=== PATIENT | male | born 2000 | race Two or more races ===

== ENCOUNTER 2025-08-17 14:44 | Inpatient (IN) | payer SELFPAY ==
[~2025-08-17] VITALS: Ht 180.3 cm; Wt 84.1 kg
[~2025-08-17 14:44] MED LIST: PENI500T2 PO
[2025-08-17] MEDS: normal saline 1000ml 1,000 ML IV ONE (15:33)
[2025-08-17] MEDS: ketorolac trometh 15mg/ml vial 15 MG/ML ML IV ONE (15:34)
[2025-08-17] MEDS: dexamethasone sod phosphate 10mg/ml inj IV STA (15:34)
[2025-08-17] MEDS: ampicillin/sulbac 3gm/NS 100ml 100 ML IV ONE (15:42)
--- NOTE | 2025-08-17 16:22 | RADIOLOGY REPORT ---
EXAM: DI CHEST,SINGLE VIEW HISTORY: SOB TECHNIQUE: 1 view of the chest COMPARISON: None FINDINGS/IMPRESSION: LUNGS: No pleural effusion, consolidation, or pneumothorax MEDIASTINUM: Pneumomediastinum. Extension of soft tissue gas into the lower neck. BONES: No acute osseous abnormality OTHER: Soft tissue emphysema along the right lateral chest wall.
[2025-08-17] MEDS ORDERED: ALBU18HF2 INH (16:30)
[2025-08-17] MEDS ORDERED: BENZ-38 PO (16:30)
[2025-08-17] MEDS ORDERED: IBUP-1984 PO (16:30)
--- NOTE | 2025-08-17 16:31 | Physician Documentation ---
History of Present Illness General Chief Complaint: Sore Throat Stated Complaint: SORE THROAT DIFF BREATHING Time Seen by MD: 15:05 Mode of Arrival: POV, Ambulatory History of Present Illness Initial Comments 25-year-old male returns to the emergency department for a re-evaluation of persistent and worsening sore throat and new onset of upper chest discomfort. Seen in the emergency department yesterday was managed for non group a beta strep pharyngitis with Toradol, Decadron IM and outpatient Rx for penicillin. Additionally had screening for COVID which was negative and Monospot was negative. Since yesterday he reports he took his 1st dose of antibiotic however woke up this morning with coughing fits that persisted. Later started developi ng upper chest discomfort that prompted him to presents to the emergency department. No ian shortness of breath, fevers or chills. No prior history of the same. Does have a past medical history of reactive airway disease. Medication Reconciliation Allergies: Coded Allergies: No Known Allergies (Unverified , 08/17/25) Scheduled Albuterol Sulfate (Ventolin Hfa), 2 PUFFS INH Q4HPRN Ibuprofen* (Motrin*), 800 MG PO Q8H Penicillin V Potassium* (Penicillin VK*), 1 TAB PO Q12H Scheduled PRN Benzonatate* (Benzonatate*), 1-2 CAP PO Q6H PRN for cough & congestion Review of Systems Constitutional: Denies: chills, weakness HENT: Reports: throat pain RESP: Reports: cough; Denies: short of breath, sputum, orthopnea CV: Reports: chest pain; Denies: palpitations, edema, syncope GI: Denies: abdominal pain, nausea Psych: Reports: anxiety Physical Exam Physical Exam Vital Signs: Temperature: 98.8, Source: Temporal, Heart Rate: 101, Respiratory Rate: 16, BP: 121/73, Pulse Oximetry: 100, Weight: 84.090 Oxygen Flow Rate: 0 General Appearance: alert, WD/WN, mild distress Head: normal inspection Face: normal inspection Pupils/EOM/Fundus: PERRLA Neck: other (Bilateral lateral tenderness without obvious subcutaneous air) Respiratory: wheezing Chest: no accessory muscle use Cardiovascular: normal peripheral pulses, other (Chest wall without obvious subcutaneous air) Back: normal inspection Extremities: normal range of motion Neurologic: oriented x4 Motor / Sensory: no motor deficit Psychiatric: normal mood/affect Progress Results/Orders Results/Orders Orders - JAIME COREA MD Urinalysis, Cult If Indicated (08/17/25 18:29) Culture Blood (08/17/25 18:29) Page Hospitalist (08/17/25 18:29) Fill Out Med Reconciliation (08/17/25 18:29) Completed Orders - JAIME COREA MD Electrocardiogram (08/17/25 18:29) Cbc/Diff (08/17/25 18:29) MG (08/17/25 18:29) Procalcitonin (08/17/25 18:29) BMP (08/17/25 18:) Hs Troponin I W Calculations (08/17/25 18:) Lacticsepsis (08/17/25 18:) PBNP (08/17/25 18:) Man Diff (08/17/25 18:49) Medications Received in ER Medications (Trade) Dose Ordered Sig/Anish Route PRN Reason Start Time Stop Time Status Last Admin Dose Admin Sodium Chloride 1,000 ml @ 1,000 mls/hr ONCE ONCE IV 08/17/25 15:15 08/17/25 16:14 DC 08/17/25 15:33 1,000 MLS/HR (Decadron 10mg/ ml inj) 10 mg ONCE STAT IV 08/17/25 15:15 08/17/25 15:17 DC 08/17/25 15:34 10 MG (Toradol injection) 15 mg ONCE ONCE IV 08/17/25 15:15 08/17/25 15:17 DC 08/17/25 15:34 15 MG Ampicillin Sodium/ Sulbactam Sodium 100 ml @ 200 mls/hr ONCE ONCE IV 08/17/25 15:20 08/17/25 15:49 DC 08/17/25 15:42 200 MLS/HR (Proventil 2.5 MG/3ML nebule) 5 mg Q1H PRN CONTNEB SOB or wheezing 08/17/25 16:20 08/17/25 18:00 5 MG Vital Signs 08/17/25 08/17/25 08/17/25 08/17/25 14:53 15:05 15:34 16:02 Temp 98.8 Pulse 122 101 Resp 18 18 16 B/P (MAP) 145/59 121/73 (89) Pulse Ox 99 100 O2 Delivery Room Air O2 Flow Rate 0 0 0 08/17/25 08/17/25 08/17/25 08/17/25 16:11 17:54 18:00 18:01 Temp 98.5 Pulse 90 86 Resp 16 20 12 B/P (MAP) 106/80 (89) Pulse Ox 99 98 O2 Flow Rate 7.0 0 08/17/25 08/17/25 08/17/25 08/17/25 18:28 18:28 18:57 19:52 Pulse 90 88 Resp 16 12 B/P (MAP) 136/81 (99) Pulse Ox 96 96 O2 Delivery Room Air O2 Flow Rate 0 Laboratory Tests Test 08/17/25 18:49 White Blood Count 26.8 *H Red Blood Count 5.01 Hemoglobin 14.7 Hematocrit 43.8 Mean Corpuscular Volume 87.5 Mean Corpuscular Hemoglobin 29.3 Mean Corpuscular Hemoglobin Concent 33.5 Red Cell Distribution Width 13.4 Platelet Count 367 Mean Platelet Volume 9.2 Neutrophils (%) (Auto) 93.7 H Lymphocytes (%) (Auto) 3.4 L Monocytes (%) (Auto) 2.1 Eosinophils (%) (Auto) 0.6 Basophils (%) (Auto) 0.2 Neutrophils # (Auto) 25.1 H Lymphocytes # (Auto) 0.9 L Monocytes # (Auto) 0.5 Eosinophils # (Auto) 0.2 Basophils # (Auto) 0.1 CBC Comment Differential Total Cells Counted 100 Neutrophils % (Manual) 92.0 H Band Neutrophils % 2.0 Lymphocytes % (Manual) 2.0 L Monocytes % (Manual) 2.0 Metamyelocytes % 2.0 H Platelet Estimate Normal Red Blood Cell Morphology Normal Basophilic Stippling Sodium Level 141 Potassium Level 4.2 Chloride Level 108 H Carbon Dioxide Level 25.3 Anion Gap 8 Blood Urea Nitrogen 18 Creatinine 0.92 Estimated GFR/1.73 m2 > 90 BUN/Creatinine Ratio 19.6 Glucose Level 115 H Lactic Acid Level 1.3 Calcium Level 8.8 Magnesium Level 2.2 Troponin I High Sensitivity 4 Pro-B-Type Natriuretic Peptide < 30 Albumin 3.8 Procalcitonin < 0.05 Chemistry Comments Medical Decision Making Findings Dr. Corea taking over case: Patient presents to the emergency room for evaluation of chest pain. Workup consistent with pneumomediastinum. Immediate IV antibiotics and consultation with Cardiothoracic surgeon who recommends admission antibiotics and repeat CT scan before any possible operation/procedure. Differential Diagnosis 25-year-old male seen in the emergency department yesterday for non group a beta strep pharyngitis who re presents today secondary to extensive cough and chest discomfort. Patient to receive IV hydration in the emergency department along with a repeated dose of Toradol and Decadron. Chest x-ray plain view imaging shows pneumomediastinum without pneumothorax or lobar infiltrates. CT imaging with contrast of the chest in neck obtained. CT read by the radiologist shows extensive he was standing emphysema. Patient remains normotensive O2 saturations 100%. Additionally has received albuterol neb. I suspicions are live viral or bacterial etiology from the pharyngitis has triggered patient's underlying reactive airway disease causing cough exacerbation and pneumomediastinum. Consultation with attending provider regarding need for likely transport to tertiary facility. Departure Disposition: 04 INTERMEDIATE CARE FACILITY Admitted to Inpatient Unit: to hospitalist Impression: Primary Impression: Tonsillitis Additional Impressions: Reactive airway disease Qualified Codes: J45.21 - Mild intermittent asthma with (acute) exacerbation Pneumomediastinum Referrals: NO PRIMARY CARE PROVIDER (PCP) Prescriptions Ibuprofen* (Motrin*) 400 Mg Tablet 800 MG PO Q8H for 10 Days, #30 TAB Prov: ENRST OBRIEN PAC 08/17/25 Benzonatate* (Benzonatate*) 100 Mg Capsule 1-2 CAP PO Q6H PRN for cough & congestion, #30 CAP Prov: ERNST OBRIEN 08/17/25 Albuterol Sulfate (Ventolin Hfa) 90 Mcg Hfa.aer.ad 2 PUFFS INH Q4HPRN, #1 INHALER Prov: ERNST OBRIEN [facility] 08/17/25 Education Educated: Patient Educated regarding: diagnosis, treatment Critical Care Note Total Time (mins): 37 Critical Care Note The very real possibility of a deterioration of this patient's condition required the highest level of my preparedness for sudden, emergent intervention. I provided critical care services, which included medication orders, frequent reevaluations of the patient's condition and response to treatment, ordering and reviewing test results, and discussing the case with various consultants. Excludes time spent performing separately billable procedures. The critical care time associated with the care of the patient was 37 minutes not counting procedures Signature Scribe Signature: No scribe Attestation: The note accurately reflects work and decisions made by me.Jaime Corea MD 08/17/25 19:59 ERNST OBRIEN PAC Aug 17, 2025 16:31 JAIME COREA MD Aug 17, 2025 19:59
--- NOTE | 2025-08-17 17:22 | RADIOLOGY REPORT ---
Indication: SOB, C/P...see CXR findings Technique: CT axial images of the chest are obtained with intravenous contrast. Coronal and sagittal reformats were obtained. Radiation Dose Information: CTDI volume is 19 mGy. Dose-length product is 100 mGy*cm Comparison: Chest radiograph from today FINDINGS: The trachea is patent. No large pneumothorax. Extensive pneumomediastinum. Extensive neck soft tissue emphysema. Bilateral axillary and chest wall soft tissue emphysema, [id number]. No pulmonary airspace consolidation. No pleural effusion. The heart is normal in size. No supraclavicular or axillary lymphadenopathy. Hepatic steatosis. No acute osseous abnormality. Mild thoracic degenerative disc disease IMPRESSION: Extensive pneumomediastinum. Recommend surgical consultation evaluate for esophageal, tracheal injury. Extensive neck and chest wall soft tissue emphysema more pronounced in the neck and thoracic inlet region. Other findings as described
--- NOTE | 2025-08-17 17:23 | RADIOLOGY REPORT ---
EXAM: CT CT NECK SOFT TISSUES INDICATION: mass/ infection TECHNIQUE: Volumetric multidetector CT images of the cervical soft tissues were obtained after administration of 100 ml low osmolar intravenous contrast. All CT scans at this facility use dose modulation, iterative reconstruction, and/or weight based dosing when appropriate to reduce radiation dose to as low as reasonably achievable. COMPARISON: None FINDINGS: [ORBITS, PARANASAL SINUSES, AND SKULL BASE]: Bubbly lucency which may be related to acute sinusitis of the right sphenoid sinus [NASOPHARYNX: Normal. [SUPRAHYOID NECK]: Extensive gas extending along the retropharyngeal space and insinuating along the fat planes bilaterally likely extending from the pneumomediastinum. The parotid and submandibular glands are normal. significant symmetric thickening of the palatine tonsils with right palatine stone. Prominence of bilateral adenoid tonsils. Lingual tonsils are mildly prominent. No abnormal epiglottic thickening. No retropharyngeal abscess. [INFRAHYOID NECK]: Normal appearance of the larynx, hypopharynx, and supraglottis. [THYROID]: Normal appearance of the thyroid gland. [LYMPH NODES]: There is no pathologically enlarged or necrotic lymph nodes. [VASCULATURE STRUCTURES]: The vascular structures of the neck appear patent. [OTHER]: No visualized pneumothorax. Extensive pneumomediastinum with extension of gas propagating along the thecal space along the spinal canal and propagating along the lateral aspect of the chest wall likely related to extension through the pleural spaces IMPRESSION: 1. No evidence of cervical mass lesion, pathologically enlarged lymph nodes or fluid collection. 2. Extensive pneumomediastinum and insinuating gas primarily extending superiorly. 3. No retropharyngeal abscess. Tonsillitis. No visualized CT apparent tonsillar abscess
[2025-08-17] MEDS: albuterol 2.5 MG/3 ML nebule CONTNEB PRN (17:41)
[2025-08-17 17:54] VITALS: PULSE 90; RESP 20; O2SAT 99
--- NOTE | 2025-08-17 18:41 | ELECTROCARDIOGRAPH REPORT ---
[facility] Test Date: 2025-08-17 Test Time: 18:39:25 Pat Name: MONA OG Department: EMERGENCY ROOM Patient ID: [id number] Room: Gender: M Pharmacy Sales Representative: JOY : 2000 Requested By: MACIEJ FINNEY Order Number: [id number] Reading MD: Measurements Intervals [place] Rate: 101 P: 42 ME: 162 QRS: 35 QRSD: 95 T: 8 QT: 338 QTc: 439 Interpretive Statements Sinus tachycardia Abnormal inferior Q waves Borderline T abnormalities, inferior leads ST elev, probable normal early repol pattern Baseline wander in lead(s) I,III,aVR,aVL,aVF,V1,V2,V3,V4,V5 Please click the below link to view image of tracing.
[2025-08-17 18:57] VITALS: PULSE 90; RESP 16; O2SAT 96
[2025-08-17 19:11] LABS: MEAN PLATELET VOLUME 9.2 FL (7.4-10.4); RED CELL DISTRIBUTION WIDTH 13.4 % (11.5-14.5)
[2025-08-17 19:36] LABS: CREATININE 0.92 MG/DL (0.60-1.10); PRO BRAIN NATRIURETIC PEPTIDE < 30 PG/ML (0-125); TOTAL CARBON DIOXIDE 25.3 MMOL/L (24-32); eCRCL 132 ML/MIN; eGFR > 90 ML/MIN
[2025-08-17 19:49] LABS: BANDS% (MANUAL) 2.0 % (0-10); LYMPHOCYTES % (MANUAL) 2.0 % (21-51); METAMYLEOCYTES% (MANUAL) 2.0 % (0-0); MONOCYTES % (MANUAL) 2.0 % (2-12); NEUTROPHILS % (MANUAL) 92.0 % (42-75)
[2025-08-17 19:50] LABS: PLATELET ESTIMATE NORMAL
[2025-08-17] MEDS ORDERED: ampicillin/sulbac 3gm/NS 100ml 100 ML IV SCH (20:00)
[2025-08-17 20:25] LABS: LEUKOCYTE ESTERASE ,URINE NEGATIVE (Neg); NITRITES, URINE NEGATIVE (Neg); OCCULT BLOOD,URINE TRACE-INTACT (Neg)
[2025-08-17 20:35] LABS: UA COLLECTION TYPE CLN CATCH MIDSTREAM
[2025-08-17 20:38] LABS: SQUAMOUS EPITHELIAL CELL,UR NONE SEEN /LPF (FEW)
[2025-08-17] MEDS ORDERED: mag hydrox/Alum hydrox/simeth 30ml oral suspension PO PRN (21:45)
[2025-08-17] MEDS ORDERED: potassium Cl 20 mEq SR tablet PO PRN ×2 (21:45)
[2025-08-17] MEDS ORDERED: magnesium sulf-water 4G/100mL 100 ML IV PRN (21:45)
[2025-08-17] MEDS ORDERED: magnesium Cl slow-release 64mg tablet PO PRN (21:45)
[2025-08-17] MEDS ORDERED: magnesium sulf-water 2g/50mL 50 ML IV PRN (21:45)
[2025-08-17] MEDS ORDERED: ondansetron/PF 4mg/2ml inj IV PRN (21:45)
[2025-08-17] MEDS ORDERED: magnesium hydroxide 30ml (MOM) UD suspension PO PRN (21:45)
[2025-08-17] MEDS ORDERED: potassium Cl 40MEQ/1/2NS 520ml 520 ML IV PRN (21:45)
[2025-08-17] MEDS ORDERED: albuterol 2.5 MG/3 ML nebule NEB PRN (22:25)
[2025-08-17] MEDS: normal saline 1000ml 1,000 ML IV SCH (22:29)
[2025-08-17] MEDS: PERFLUTREN PROTEIN-A MICROSPHR (Optison) 0.22 MG/ML 3ML VIAL IV ONE (22:29)
--- NOTE | 2025-08-17 22:29 | HISTORY AND PHYSICAL-Residence ---
History & Physical Providers to CC Resident Creating Document: NEDA WILLARDSHADE ~ History of Present Illness Reason for Admit\Complaint: Neck pain and sob History of Present Illness A 25-year-old male with a history of reactive airway disease presented to the ED yesterday for sore throat and enlarged tonsils. At that visit he had negative COVID and Monospot tests and a negative rapid strep, received IM ketorolac and IM dexamethasone, was given oral penicillin ( patient took first dose), and was discharged with outpatient follow-up. He had a single recorded temperature of 99.7F yesterday and complained of progressive odynophagia / difficulty swallowing solids and liquids for about one week. This morning he awoke with recurrent, forceful coughing fits and then developed abrupt onset severe neck pain and upper chest pain radiating from the neck into the chest. He describes a sensation that something popped in the neck. Earlier in the week (7 days prior) he also had an episode of forceful vomiting for an hour, and this morning had multiple episodes of retching (~56) before presenting. He reports increased neck swelling and persistent cough since today morning; he denies prior similar events. In the ED today: Vitals / exam: he remained hemodynamically stable and normotensive; SpO2 100% on room air. No report of persistent stridor;clinical crepitus present Labs: WBC 26.8 with neutrophils 93.7%. ECG: ST-elevation pattern consistent with early repolarization (no ischemic correlate reported) CXR: pneumomediastinum without pneumothorax CT chest & neck with contrast: extensive pneumomediastinum with large cervical and chest-wall subcutaneous emphysema tracking superiorly into the neck and thoracic inlet; no pneumothorax, no retropharyngeal or tonsillar abscess identified Cardiothoracic surgery was consulted and recommended admission, IV antibiotics, and repeat CT chest & neck tomorrow AM (without contrast) before any operative procedure Allergies: Coded Allergies: No Known Allergies (Unverified , 08/17/25) Home Medications Home Medications Active Motrin* (Ibuprofen) 400 Mg Tablet 800 Mg PO Q8H 10 Days Benzonatate* (Benzonatate) 100 Mg Capsule 1-2 Cap PO Q6H PRN Ventolin Hfa (Albuterol Sulfate) 90 Mcg Hfa.aer.ad 2 Puffs INH Q4HPRN Penicillin VK* (Penicillin V Potassium) 500 Mg Tablet 1 Tab PO Q12H 10 Days Past Medical History Past Medical History Recurrent tonsillitis Transient asthma Tobacco use disorder Past Surgical History Surgical History Comment No surgeries in the past Past Social History Social History Comment Smoking: Admits to smoking of about half a pack of cigarettes for 10 years, quit 2 months ago, currently vaping Alcohol: Occasional Illicit use of drugs: Admits to using marijuana daily ROS ROS Reviewed in full. All negative except for pertinent positive HPI. Exam Vitals: Vital Signs Date Time Temp Pulse Resp B/P (MAP) Pulse Ox O2 Delivery O2 Flow Rate FiO2 08/17/25 19:52 88 12 136/81 (99) 96 08/17/25 18:28 Room Air 0 08/17/25 18:01 98.5 General: Awake , alert, and oriented x4, resting comfortably in the bed, in no acute distress HEENT: Atraumatic, normocephalic, EOMI, anicteric sclera ; pink conjunctiva Neck: Trachea midline. Supple, full range of motion, no JVD Cardiac: Regular rhythm, regular rate with no murmurs all over the precordium. Respiratory: Equal breath sounds bilaterally, no tachypnea, no wheezing , crunchy sound heard on auscultation especially on the left 2nd intercostal space Gastrointestinal: Abdomen symmetric, non-distended, soft, non-tender, normal bowel sounds x4 quadrant, normoactive, no hepatosplenomegaly Musculoskeletal: No pedal edema, no cyanosis Neurological: Mental status exam: alert and consciousness, orientation, memory, speech - Cranial nerve test: Cranial nerves 2-12 intact - Motor system: Nutrition, Tone 3+, Power 5/5, no involuntary movements - Sensory system: Intact - Reflex testing: Biceps, triceps and knee reflexes 2+ - Cerebellar: Normal Skin: Warm and dry Diagnostic Data Last Recorded Lab Results: 08/17/25 [id number] Advance Care Planning Advanced Care plannin - 30 Minutes Additional Plan 1.Pneumomediastinum with subcutaneous emphysema Assessment: CT chest/neck shows extensive pneumomediastinum extending into cervical and chest wall soft tissues, likely due to alveolar rupture in the setting of repeated cough/retching. No pneumothorax, no abscess Patient is stable on room air with O2 sat 100%. Risk remains for airway compromise, progression of mediastinal air, or underlying esophageal perforation Plan: NPO pending esophageal evaluation Supplemental O2 by NC to promote resorption of mediastinal air Analgesia with IV opioids PRN Antiemetics (ondansetron) to prevent retching Albuterol PRN for bronchospasm CT surgeon, Dr. Arthur consulted recommended monitoring for now and CT chest and neck tomorrow in a.m. Repeat CT chest/neck without contrast tomorrow AM per CT surgery Close airway monitoring; escalate to ICU if worsening stridor, dyspnea, or hemodynamic instability 2.Rule out esophageal perforation (Boerhaave syndrome) Assessment: Patient had a history of forceful vomiting last week and again recently, making esophageal injury a serious consideration. Esophageal perforation could explain mediastinal air and leukocytosis; needs exclusion before advancing diet Plan: The patient will actually need an esophagogram using a water-soluble Gastrografin; however, upon reaching out to the accounting technician, it became clear that there is currently no radiologist available on-site to conduct the esophagogram. Therefore, she suggested that a CT scan of the chest and abdomen be ordered with oral Gastrografin, which will be provided during the CT procedure. Consider CT esophagography that has high suspicion Maintain strict NPO until perforation excluded If leak identified insert thoracic surgery immediately 3.Leukocytosis with neutrophilia (WBC 26.8, neutrophils 93%) Assessment: Likely reactive due to inflammation from pneumomediastinum and prior pharyngitis Possible mediastinitis Plan: Blood cultures 2 Continue broad-spectrum IV antibiotics (Zosyn) Monitor CBC, CMP, lactate (currently normal); CRP ordered Monitor clinically for fevers, sepsis signs, hemodynamic instability 4.Recent tonsillitis/pharyngitis Lorena Grading Scale - grade 3 Assessment: Seen yesterday for tonsillar enlargement and sore throat Monospot, COVID, and strep testing negative No tonsillar abscess or retropharyngeal abscess on CT neck Still a possible contributor to leukocytosis but covered by IV therapy Plan: Continue current IV antibiotics Supportive care with analgesia and hydration 5.Chest pain with early repolarization on EKG Assessment: EKG shows early repolarization, common benign finding in young adults Chest pain is pleuritic and positional, consistent with mediastinal air rather than ischemia Plan: Monitor on telemetry. Consider troponin for baseline No ACS treatment indicated unless evolving changes occur 6.Reactive airway disease Assessment: History of reactive airway disease with recent cough exacerbation Bronchospasm may worsen subcutaneous emphysema Plan: Albuterol nebulizers PRN Avoid excessive coughing triggers Continue to monitor for hypoxemia or wheezing 7. Tobacco use disorder: Substance abuse navigator consulted Code Status: I spent a total of 17 minutes on reviewing various resuscitative measures with the patient at the time of admission. The patient has decided on a full code status. DVT Prophylaxis: Heparin SQ Analgesia/ Sedation: Hope Line/tubes: P IV Nutrition: NPO Prognosis: Guarded Neda Willard MD Internal Medicine Resident, PGY-2 Date of Service: Aug 17, 2025 Billing Provider: KAVYA MONTEJO MD Addendum Attestation Plan: CT with gastograffin NPO Surgery consult repeat chest xray CCT 47 min using HIPPA compliant A/V technology NEDA WILLARD, RES Aug 17, 2025 22:29 KAVYA MONTEJO MD Aug 18, 2025 04:41
[2025-08-17 22:40] VITALS: BP 103/63; PULSE 83; RESP 19; TEMP 97.8; O2SAT 100
[2025-08-17 22:45] VITALS: RESP 19; O2SAT 100
[2025-08-18] VITALS (9 sets, daily range): BP systolic 96–120; BP diastolic 47–64; PULSE 63–80; RESP 12–19; TEMP 97.3–98.1; O2SAT 94–100
[2025-08-18] MEDS: piperacillin/tazo 3.375gm/50ml 50 ML IV SCH ×2 (00:08→07:57)
[2025-08-18 06:24] LABS: MEAN PLATELET VOLUME 9.2 FL (7.4-10.4); RED CELL DISTRIBUTION WIDTH 13.5 % (11.5-14.5)
[2025-08-18 06:35] LABS: CHOL/HDL RATIO 4.8 (0.00-4.99); CREATININE 0.80 MG/DL (0.60-1.10); LDL CHOLESTEROL 132 MG/DL (50-100); TOTAL CARBON DIOXIDE 25.0 MMOL/L (24-32); eCRCL 152 ML/MIN; eGFR > 90 ML/MIN
[2025-08-18] MEDS: docusate sod 100mg capsule PO SCH (07:55)
[2025-08-18] MEDS: K and/or MAG REPLACEMENT MC SCH (07:55)
--- NOTE | 2025-08-18 12:17 | RADIOLOGY REPORT ---
Indication: ESOPHAGEAL LEAK Technique: CT axial images of the chest are obtained without IV contrast. Coronal and sagittal reformats were obtained. Patient was administered omnipaque contrast orally. Radiation Dose Information: CTDI volume is 16 mGy. Dose-length product is 2332 mGy*cm Comparison: CT CT CHEST W/ IV CONTRAST on DOS: 08/17/25 FINDINGS: Patent trachea. Extensive pneumomediastinum is again noted. There is neck and chest soft tissue emphysema. Contrast within the esophagus. No extraluminal contrast seen. Stomach distended with contrast. There is mild Right upper lobe tree-in-bud nodularity. No supraclavicular or axillary lymphadenopathy. No aggressive osseous process. IMPRESSION: No evidence for leakage /extravasation of contrast from the esophagus. Extensive pneumomediastinum, neck and chest wall soft tissue emphysema again noted. Right upper lobe tree-in-bud nodularity which can be secondary to aspiration, bronchiolitis, atypical infection. Other findings as described
[2025-08-18] MEDS: CefTRIAXone 2gm/D5W 50ml BAG 50 ML IV SCH (12:40)
[2025-08-18] MEDS: azithromycin/NS 500mg/250ml 250 ML IV SCH (13:11)
[2025-08-18] MEDS: heparin, porcine 5000 units/ml vial SQ SCH (19:38)
--- NOTE | 2025-08-18 20:08 | PROGRESS NOTE ---
Daily Progress Note Providers to CC ~ Antibiotic Timeout Antibiotic Ordered?: Yes Subjective Patient was seen in his room he looked comfortable wanted to eat bedside swallowing studies done patient's diet advanced. Patient denied any concern regarding worsening of his breathing. Vitals stable Objective Vital Signs Date Time Temp Pulse Resp B/P (MAP) Pulse Ox O2 Delivery O2 Flow Rate FiO2 08/18/25 15:00 97.9 80 18 120/47 (71) 94 Room Air 08/18/25 11:35 0 21 Result Diagram: 08/18/25 0534 08/18/25 0534 General-patient not in any acute distress, alert awake oriented, ill-appearing, obese. HEENT-atraumatic normocephalic, neck supple without elevated JVD, no thyromegaly or carotid bruit. No lymphadenopathy bilaterally. Bilateral tonsils enlarged but no signs of erythema noticed. Airway patent. No enlarged submandibular glands. Eyes-no icterus or pallor seen in eyes Chest-clear to auscultation bilaterally, breathing nonlabored no tachypnea, no wheezing, no crepitation, no crackles. Heart-S1-S2 normal, regular heart rate no murmur Abdomen bowel sounds positive on auscultation, soft nondistended nontender no guarding, no rigidity Skin no active skin rash Neurology-grossly intact, nonfocal alert awake oriented Extremity- no pedal edema able to move all 4 extremities Psychiatry - patient is not confused or agitated cooperated during physical examination Problem\Assessment\Plan 1.Pneumomediastinum with subcutaneous emphysema Assessment: CT chest/neck shows extensive pneumomediastinum extending into cervical and chest wall soft tissues, likely due to alveolar rupture in the setting of repeated cough/retching. No pneumothorax, no abscess Patient is stable on room air with O2 sat 100%. Risk remains for airway compromise, progression of mediastinal air, or underlying esophageal perforation Plan: NPO pending esophageal evaluation Supplemental O2 by NC to promote resorption of mediastinal air Analgesia with IV opioids PRN Antiemetics (ondansetron) to prevent retching Albuterol PRN for bronchospasm CT surgeon, Dr. Arthur consulted recommended monitoring for now and CT chest and neck tomorrow in a.m. Repeat CT chest/neck without contrast tomorrow AM per CT surgery will do airway monitoring; escalate to ICU if worsening stridor, dyspnea, or hemodynamic instability 08/18-repeat CT CHESTIMPRESSION: No evidence for leakage /extravasation of contrast from the esophagus. Extensive pneumomediastinum, neck and chest wall soft tissue emphysema again noted. Right upper lobe tree-in-bud nodularity which can be secondary to aspiration, bronchiolitis, atypical infection. Other findings as described Patient is started on antibiotic therapy with ceftriaxone and Zithromax today we will stop Zosyn. We will continue to monitor lab. Dr. Arthur consulted on this case by night team 2.Rule out esophageal perforation (Boerhaave syndrome) Maintained strict NPO and perforation excluded 3.Leukocytosis with neutrophilia (WBC 26.8, neutrophils 93%) Assessment: Likely reactive due to inflammation from pneumomediastinum and prior pharyngitis Possible mediastinitis Plan: Blood cultures 2 On ceftriaxone and Zithromax currently Monitor CBC, CMP, lactate (currently normal); CRP ordered Monitor clinically for fevers, sepsis signs, hemodynamic instability 4.Recent tonsillitis/pharyngitis [place] Grading Scale - grade 3 Assessment: Seen yesterday for tonsillar enlargement and sore throat Monospot, COVID, and strep testing negative No tonsillar abscess or retropharyngeal abscess on CT neck Plan: Continue current IV antibiotics Supportive care with analgesia and hydration 5.Chest pain with early repolarization on EKG Assessment: EKG shows early repolarization, common benign finding in young adults Chest pain is pleuritic and positional, consistent with mediastinal air rather than ischemia Plan: Monitor on telemetry. Consider troponin for baseline No ACS treatment indicated unless evolving changes occur 6.Reactive airway disease Assessment: History of reactive airway disease with recent cough exacerbation Bronchospasm may worsen subcutaneous emphysema Plan: Albuterol nebulizers PRN Avoid excessive coughing triggers Continue to monitor for hypoxemia or wheezing 7. Tobacco use disorder: Substance abuse navigator consulted. Patient is strongly advised to stop smoking and risks explained Code Status: full code status. DVT Prophylaxis: Heparin SQ Analgesia/ Sedation: [place] Line/tubes: P IV Nutrition: NPO Patient's current condition is guarded we will continue to follow patient in a.m. Date of Service: Aug 18, 2025 Billing Provider: NITNI HARRELL MD Common Visit Codes: 64260-[id number] INP/OBS CARE(HIGH) NITIN HARRELL MD Aug 18, 2025 20:08
[2025-08-19 02:00] VITALS: BP 103/51; PULSE 83; RESP 11; TEMP 97.3; O2SAT 98
[2025-08-19 03:14] VITALS: PULSE 60; RESP 16; O2SAT 98
[2025-08-19 06:00] VITALS: BP 128/81; PULSE 57; RESP 11; TEMP 97.5; O2SAT 99
[2025-08-19 06:19] LABS: CREATININE 0.83 MG/DL (0.60-1.10); MEAN PLATELET VOLUME 9.2 FL (7.4-10.4); RED CELL DISTRIBUTION WIDTH 13.4 % (11.5-14.5); TOTAL CARBON DIOXIDE 27.7 MMOL/L (24-32); eCRCL 146 ML/MIN; eGFR > 90 ML/MIN
[2025-08-19 08:00] VITALS: RESP 11; O2SAT 99
[2025-08-19 10:46] VITALS: PULSE 69; RESP 14; O2SAT 98
[2025-08-19 11:00] VITALS: BP 113/64; PULSE 57; RESP 15; TEMP 97.7; O2SAT 98
--- NOTE | 2025-08-19 12:53 | CONSULTATION REPORT ---
Consult Providers to CC ~ History of Present Illness Reason for Admit\Complaint: pneumomediastinum History of Present Illness Mr Jack is a 25 year old male who presented to the ED with throat pain and forceful coughing spells related to chest discomfort. He had been on two days of oral antibiotics for presumed pharyngitis with minimal improvement. CT of the chest demonstrated mediastinal emphysema primarily located in the cervical and supraclavicular region, with no evidence of pneumothorax or pleural effusion. He reports daily Vape use. Allergies: Coded Allergies: No Known Allergies (Unverified , 08/17/25) Home Medications Home Medications Active Motrin* (Ibuprofen) 400 Mg Tablet 800 Mg PO Q8H 10 Days Benzonatate* (Benzonatate) 100 Mg Capsule 1-2 Cap PO Q6H PRN Ventolin Hfa (Albuterol Sulfate) 90 Mcg Hfa.aer.ad 2 Puffs INH Q4HPRN Penicillin VK* (Penicillin V Potassium) 500 Mg Tablet 1 Tab PO Q12H 10 Days Past Social History Social History Comment Daily Vape use Exam Vitals: Vital Signs Date Time Temp Pulse Resp B/P (MAP) Pulse Ox O2 Delivery O2 Flow Rate FiO2 08/19/25 10:46 69 14 98 Room Air* 0 21 08/19/25 02:00 97.3 103/51 (68) General: NAD HEENT: PERRLA Neck: supple, no palpable crepitus, no adenopathy Chest: clear Cardiovascular: rrr Abdomen: soft, non-distended Extremities: warm, no edema Central Nervous System: no deficits Musculoskeletal: full rom, no deformities Diagnostic Data Last Recorded Lab Results: 08/19/25 0529 08/19/25 0529 Additional Plan 25 year old male with pneumomediastinum, likely related to forceful cough due to vaping and ongoing throat infection. Would continue IV antibiotics and supportive care. CRISELDA UGARTE MD Aug 19, 2025 12:53
[2025-08-19] MEDS ORDERED: AZIT500T9 PO (13:30)
[2025-08-19] MEDS ORDERED: CEFD300C3 PO (13:30)
--- NOTE | 2025-08-19 19:09 | DISCHARGE SUMMARY ---
Discharge Summary Providers to CC ~ Discharge Summary Admission Diagnosis: pneumomediastinum Hospital Course DATE OF ADMISSION: 08/17/2025 DATE OF DISCHARGE: 08/19/2025 Discharge Diagnosis\\Comment: Pneumomediastinum with subcutaneous emphysema, esophageal perforation ruled out, leukocytosis with neutrophilia, reactive air disease, tobacco use disorder Operations\\Procedures: None Consultants: Dr. Arthur Cardiothoracic surgeon Complications: None Condition on DC: Stable New Medications: Azithromycin (Azithromycin) 500 Mg Tablet 1 TAB PO DAILY for 3 Days, #3 TAB 0 Refills Cefdinir* (Cefdinir*) 300 Mg Capsule 1 CAP PO Q12H, #12 CAP Continued Medications: Albuterol Sulfate (Ventolin Hfa) 90 Mcg Hfa.aer.ad 2 PUFFS INH Q4HPRN, #1 INHALER Benzonatate* (Benzonatate*) 100 Mg Capsule 1-2 CAP PO Q6H PRN for cough & congestion, #30 CAP Ibuprofen* (Motrin*) 400 Mg Tablet 800 MG PO Q8H for 10 Days, #30 TAB Discontinued Medications: Penicillin V Potassium* (Penicillin VK*) 500 Mg Tablet 1 TAB PO Q12H for 10 Days, #20 TAB Discharge Summary: The patient was admitted by resident physician NEDA Sawyer , under the supervision of KAVYA MONTEJO MD with the following HPI:"A 25-year-old male with a history of reactive airway disease presented to the ED yesterday for sore throat and enlarged tonsils. At that visit he had negative COVID and Monospot tests and a negative rapid strep, received IM ketorolac and IM dexamethasone, was given oral penicillin ( patient took first dose), and was discharged with outpatient follow-up. He had a single recorded temperature of 99.7F yesterday and complained of progressive odynophagia / difficulty swallowing solids and liquids for about one week. This morning he awoke with recurrent, forceful coughing fits and then developed abrupt onset severe neck pain and upper chest pain radiating from the neck into the chest. He describes a sensation that something popped in the neck. Earlier in the week (7 days prior) he also had an episode of forceful vomiting for an hour, and this morning had multiple episodes of retching (~56) before presenting. He reports increased neck swelling and persistent cough since today morning; he denies prior similar events. In the ED today: Vitals / exam: he remained hemodynamically stable and normotensive; SpO2 100% on room air. No report of persistent stridor;clinical crepitus present Labs: WBC 26.8 with neutrophils 93.7%. ECG: ST-elevation pattern consistent with early repolarization (no ischemic correlate reported) CXR: pneumomediastinum without pneumothorax CT chest & neck with contrast: extensive pneumomediastinum with large cervical and chest-wall subcutaneous emphysema tracking superiorly into the neck and t horacic inlet; no pneumothorax, no retropharyngeal or tonsillar abscess identified Cardiothoracic surgery was consulted and recommended admission, IV antibiotics, and repeat CT chest & neck tomorrow AM (without contrast) before any operative procedure." The patient was titrated off of oxygen evaluated by Cardiothoracic surgeon Dr. Arthur on the morning of who recommended an additional evening of hospitalization with IV antibiotics however the patient was resolute that he wanted to go home and was medically stable to be discharged and Dr. Arthur felt though was okayed for the patient to be discharged home. The repeat CT scan w ith oral contrast was negative for any esophageal rupture. The patient is discharged with a prescription for azithromycin 500 mg daily for three days and cefdinir 300 mg b.i.d. for additional six days. Recommended the patient obtain a probiotic to avoid antibiotic induced colitis (C difficile enterocolitis) Note that the patient is white blood cell [place] [address] to [address] on the day of discharge. Gen. No acute distress alert and oriented 4 Lungs clear to ascultation bilaterally, no wheezes rales or rhonchi appreciated Heart normal sinus rhythm no murmurs rubs or clicks noted Abdomen soft nontender bowel sounds are normoactive Lower extremities no clubbing cyanosis, nor edema appreciated bilaterally The patient felt ready to be discharged and was medically cleared to be discharged on 08/19/2025 The patient was seen and evaluated on day of discharge. Time spent on discharge 35 minutes *Problems/Diagnosis: (1) Pneumomediastinum Status: Acute Total Time Spent on D/C: > 30 Minutes Date of Service: Aug 19, 2025 Billing Provider: OSCAR ROSADO DO Common Visit Codes: 33034-RXG/OBS DISCH DAY >30min OSCAR ROSADO DO Aug 19, 2025 19:09
--- NOTE | 2025-08-20 18:19 | CARDIOLOGY REPORT ---
APPROVED REPORT EXAM: Comprehensive 2D, Doppler, and color-flow Echocardiogram. 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 176.2 cm/s AoV VTI 31.0 cm AO Peak GR. 12.4 mmHg AO Mean GR. 6 mmHg LVOT VTI 24.91 cm LVOT Peak Khoa. 130.2 cm/s HOLLY(VTI)/BSA 2.42 cm2/m2 HOLLY (VTI) 2.42 cm2 AV DI 0.80 % Mitral Valve MV E Velocity 126.1 cm/s MV Peak Gr. 10 mmHg MV DECEL TIME 140 ms MV A Velocity 98.1 cm/s MV PHT 52 ms E/A Ratio 1.3 MVA (PHT) 4.23 cm2 MV VMax 161.0 cm/s TDI Lateral E' P. V 20.50 cm/s E/Lateral E' 6.2 Tricuspid Valve TR P. Velocity 226 cm/s RAP ESTIMATE 10 mmHg TR Peak Gr. 20 mmHg RVSP 30 mmHg LEFT VENTRICLE Normal LV size and wall thickness. Overall systolic function is normal. Overall LVEF is 70%. RIGHT VENTRICLE RV is normal size and function. ATRIA The left atrium size is normal. AORTIC VALVE Trileaflet AV appears mildly sclerotic without stenosis. No insufficiency. MITRAL VALVE The mitral valve is normal in structure without stenosis. Trace regurgitation. TRICUSPID VALVE The tricuspid valve is normal in structure with trace regurgitation. PULMONIC VALVE Pulmonic valve is grossly normal in structure. GREAT VESSELS The aortic root is normal in size. The IVC is normal in size and collapses >50% with inspiration. PERICARDIUM Normal pericardium. No effusion. Other Information Study Quality: Adequate Conclusion Overall LVEF is 70%. Normal LV size and wall thickness. Overall systolic function is normal. RV is normal size and function. Trileaflet AV appears mildly sclerotic without stenosis. No insufficiency. The mitral valve is normal in structure without stenosis. Trace regurgitation. The tricuspid valve is normal in structure with trace regurgitation. Normal pericardium. No effusion.
== END 2025-08-19 14:34 | disposition home or self-care (01) | DRG 203 ==
LOC: ER 14:45 → ED HOLD 20:05 → EDBEDREQ 22:03 → PCU 3S 22:36
PROVIDERS: ADMIT Internal Medicine; ATTEND Internal Medicine
PROC: BW241ZZ Computerized Tomography (CT Scan) of Chest and Abdomen using Low Osmolar Contrast (ICD-10-PCS; principal; 2025-08-17)
PROC: BW2F1ZZ Computerized Tomography (CT Scan) of Neck using Low Osmolar Contrast (ICD-10-PCS; 2025-08-17)
DX: J45.21 Mild intermittent asthma with (acute) exacerbation (principal); J98.2 Interstitial emphysema; M54.2 Cervicalgia; D72.829 Elevated white blood cell count, unspecified; R07.0 Pain in throat; Z79.899 Other long term (current) drug therapy
CPT/HCPCS: 36415; 70490; 70491; 71045; 71250; 71260; 80048; 80053; 80061; 81001; 83036; 83605; 83735; 83880; 84145; 84484; 85007; 85025; 85651; 86140; 87040; 87081; 93005; 93306; 94640; 94760; 96365; 96375; 99291; A4615; A7015; G0378; J0295; J0456; J0696; J1100; J1644; J1885; J2543; J7030; Q9956; Q9967